=== PATIENT | female | born 1945 | race Caucasian/White ===

== ENCOUNTER → 2017-02-17 | Outpatient (CLI) | payer MEDICARE ==
[~2017-02-17] MED LIST: CHOL200024 PO; CINN500C4 PO; CYAN500T47 PO; GINK120C PO; INSU100C6 SQ; INSU100V8 SQ; LEVO50TA69 PO; LOSA25TA34 PO; MAGN250T33 PO; METF10002 PO; METO-277 PO; METO5TAB2 PO; MILK87.5 PO; MULT-850 PO; NIAC500T22 PO; OMEP40CA30 PO; SELE100T6 PO; SPIR50TA PO; THIO100C3 PO; VENL37.571 PO; ZINC15TA2 PO
[2017-02-17 10:31] LABS: BASOPHILS % (AUTO) 0.7 % (0-2); EOSINOPHILS # (AUTO) 0.1 T/MM3 (0-0.5); EOSINOPHILS % (AUTO) 3.1 % (0-4); HCT - HEMATOCRIT 36.2 % (36-46); LYMPHOCYTES # (AUTO) 0.5 T/MM3 (1-4.8); LYMPHOCYTES % (AUTO) 15.5 % (23-45); MEAN CORPUSCULAR HGB 28.6 UUG (26-34); MEAN CORPUSCULAR HGB CONC(MCHC 33.1 GM/DL (31-37); MEAN CORPUSCULAR VOLUME 86.2 UM3 (80-100); MEAN PLATELET VOLUME 9.7 UM3 (9.4-12.4); MONOCYTES # (AUTO) 0.3 T/MM3 (0-0.8); MONOCYTES % (AUTO) 8.9 % (0-9.0); NEUTROPHILS #(AUTO)-ABSOLUTE 2.1 T/MM3 (1.8-7.7); NEUTROPHILS % (AUTO) 71.8 % (33-66); WBC - WHITE BLOOD COUNT 2.9 T/MM3 (4.5-11.0)
[2017-02-17 10:42] LABS: ALBUMIN 3.8 G/DL (3.5-5.0); ALBUMIN/GLOBULIN RATIO 1.5 RATIO (1.1-2.2); ALKALINE PHOSPHATASE 77 U/L (38-126); ALT (SGPT) 38 U/L (9-52); ANION GAP 12 MEQ/L (5-15); AST (SGOT) 20 U/L (14-36); BUN/CREATININE RATIO 19 RATIO (6-26); CALCIUM 9.3 MG/DL (8.4-10.2); CHLORIDE 99 MEQ/L (98-107); CO2 - CARBON DIOXIDE 27 MEQ/L (22-30); CREATININE 0.8 MG/DL (0.7-1.2); GLOMERULAR FILTRATION RATE 71; GLUCOSE 294 MG/DL (65-110); POTASSIUM 4.1 MEQ/L (3.6-5); SODIUM 138 MEQ/L (134-144); TOTAL PROTEIN 6.4 G/DL (6.3-8.2)
[2017-02-17 11:13] LABS: CA 27-29 CALCULATED 19.11 U/ML (0-37.7)
== END ==
LOC: LAB 10:08
PROVIDERS: ATTEND Internal Medicine Medical Oncology
DX: C50.112 Malignant neoplasm of central portion of left female breast (principal); C78.01 Secondary malignant neoplasm of right lung
CPT/HCPCS: 36415; 80053; 82378; 85025; 86300